=== PATIENT | female | born 1980 | race American Indian/Alaskan Native ===

== ENCOUNTER 2017-10-06 18:56 | Emergency (ER) | payer MEDICAID, OTHER ==
[2017-10-06 18:57] VITALS: BMI 41.1
[2017-10-06 19:05] VITALS: BP 127/82; PULSE 75; RESP 18; TEMP 97.5; O2SAT 96
--- NOTE | 2017-10-06 19:33 | C.PDOC ---
History Of Present Illness 36 year old female with a Hx of asthma and intubation 4 years ago presents to the ER with a complaint of feeling SOB and back pain for the past 5 days. Patient states she was seen on 10/04/17 at [facility] where she had CT of her chest that showed a collapsed right middle lobe and a CT abd/pel that was unremarkable. Patient was advised to be admitted at the time to have a bronchoscopy done, however, patient signed out AMA. [place] [facility] [place], she was found to have mild leukocytosis with predominance of neutrophils. Patient admitted but states they did not treat her SOB and discharged with morning her on levaquin. Denies fever or chest pain. Chief Complaint (Nursing): Shortness Of Breath History Per: Patient History/Exam Limitations: no limitations Onset/Duration Of Symptoms: Days Current Symptoms Are (Timing): Still Present Initiating Event: Other (Not known) Current Respiratory Medications: None Associated Symptoms: denies: Fever, Chest Pain, Productive Cough Past Medical History Reviewed: Historical Data, Nursing Documentation, Vital Signs Vital Signs: Last Vital Signs Temp 97.5 F L 10/06/17 19:02 Pulse 75 10/06/17 19:02 Resp 18 10/06/17 19:02 BP 127/82 10/06/17 19:02 Pulse Ox 96 10/06/17 19:50 - Medical History PMH: Arthritis (R knee), Asthma Surgical History: No Surg Hx - [facility] Procedures DRAINAGE OF PELVIC SUBCU/FASCIA, OPEN APPROACH, DIAGN (05/27/16) EXCISION OF PELVIC SUBCU/FASCIA, OPEN APPROACH (05/27/16) Family History: States: Unknown Family Hx - Social History Hx Tobacco Use: Yes (light smoker) Hx Alcohol Use: Yes (social) Hx Substance Use: Yes (CANNABIS) - Immunization History Hx Tetanus Toxoid Vaccination: Yes Hx Influenza Vaccination: Yes Hx Pneumococcal Vaccination: Yes Review Of Systems Constitutional: Negative for: Fever Eyes: Negative for: Vision Change ENT: Negative for: Throat Pain, Throat Swelling Cardiovascular: Negative for: Chest Pain, Palpitations Respiratory: Positive for: Shortness of Breath. Negative for: Hemoptysis Gastrointestinal: Negative for: Vomiting Musculoskeletal: Positive for: Back Pain Physical Exam - Physical Exam Appears: Non-toxic, No Acute Distress, Other (Speaking in complete sentences) Skin: Normal Color, Warm, Dry Head: Atraumatic, Normacephalic Ear(s): Bilateral: Normal Nose: Normal, No Flaring Oral Mucosa: Moist, No Drooling Neck: Normal, Supple Chest: Symmetrical, No Tenderness Cardiovascular: Rhythm Regular Respiratory: No Accessory Muscle Use, Wheezing (Expiratory) Gastrointestinal/Abdominal: Soft, No Tenderness Neurological/Psych: Oriented x3, Normal Speech, Normal Cognition ED Course And Treatment O2 Sat by Pulse Oximetry: 96 (Room air) Pulse Ox Interpretation: Normal Medical Decision Making Medical Decision Making: While awaiting patient work up and response of treatment, patient decided she wanted to leave, she refused all blood work and breathing treatment. Patient left the building before an AMA form could be produced, she stated she will return to [place] where her prior work up was done. Disposition - Disposition Disposition: ELOPEMENT - ER ONLY Disposition Time: 20:00 Condition: FAIR Forms: [facility] (Tajik) - Clinical Impression Clinical Impression: Asthma - Scribe Statement The provider has reviewed the documentation as recorded by the Scribjulius Rebolledo All medical record entries made by the Jeffibjulius were at my direction and personally dictated by me. I have reviewed the chart and agree that the record accurately reflects my personal performance of the history, physical exam, medical decision making, and the department course for this patient. I have also personally directed, reviewed, and agree with the discharge instructions and disposition.
== END 2017-10-06 19:32 | disposition left against medical advice (07) ==
LOC: C.ER 18:56
DX: J45.909 Unspecified asthma, uncomplicated (principal); F17.210 Nicotine dependence, cigarettes, uncomplicated

== ENCOUNTER 2018-05-09 11:25 | Emergency (ER) | payer MEDICAID, OTHER ==
[2018-05-09 11:30] VITALS: BMI 46.0
--- NOTE | 2018-05-09 11:58 | C.PDOC ---
History Of Present Illness <Sophia Nunes - Last Filed: 05/09/18 12:58> <Claudio,Lissette A - Last Filed: 05/11/18 14:18> 37 y/o female currently 19 weeks presents to ED with c/o vaginal bleeding associated with abdominal cramping. Patient states she was doing a lot of heavy lifting yesterday and developed cramping last night and vaginal bleeding described as clots today. Patient denies vaginal discharge, dysuria, back pain, fever, chills or any other complaints at this time. (Sophia Nunes) History Per: Patient History/Exam Limitations: no limitations Onset/Duration Of Symptoms: Days Current Symptoms Are (Timing): Still Present Quality Of Discomfort: Cramping <Sophia Nunes - Last Filed: 05/09/18 12:58> <Lissette Snyder - Last Filed: 05/11/18 14:18> Time Seen by Provider: 05/09/18 11:39 Chief Complaint (Nursing): Abdominal Pain Past Medical History Reviewed: Historical Data, Nursing Documentation, Vital Signs - Medical History PMH: Arthritis (susan knee), Asthma, Bronchitis, Fractures (left fibula), Sleep Apnea (confirmed by sleep study, mild) Surgical History: No Surg Hx Family History: States: No Known Family Hx - Social History Hx Tobacco Use: Yes (light smoker) Hx Alcohol Use: Yes (Socially) Hx Substance Use: No (Marijuana) - Immunization History Hx Tetanus Toxoid Vaccination: Yes (01/2018) Hx Influenza Vaccination: Yes (2017) Hx Pneumococcal Vaccination: Yes (2017) <Sophia Nunes - Last Filed: 05/09/18 12:58> Vital Signs: Last Vital Signs Temp 98.0 F 05/09/18 14:36 Pulse 62 05/09/18 14:36 Resp 16 05/09/18 14:36 BP 108/61 05/09/18 14:36 Pulse Ox 97 05/09/18 14:36 - [facility] Procedures DRAINAGE OF PELVIC SUBCU/FASCIA, OPEN APPROACH, DIAGN (05/27/16) EXCISION OF PELVIC SUBCU/FASCIA, OPEN APPROACH (05/27/16) Review Of Systems Constitutional: Negative for: Fever, Chills Cardiovascular: Negative for: Chest Pain Gastrointestinal: Negative for: Nausea, Vomiting Genitourinary: Positive for: Vaginal Bleeding, Pelvic Pain. Negative for: Dysuria, Vaginal Discharge <Sophia Nunes - Last Filed: 05/09/18 12:58> Physical Exam - Physical Exam Appears: Non-toxic, No Acute Distress Skin: Warm, Dry, No Rash Head: Atraumatic, Normacephalic Eye(s): bilateral: Normal Inspection Oral Mucosa: Moist Neck: Normal ROM, Supple Cardiovascular: Rhythm Regular Respiratory: Normal Breath Sounds, No Rales, No Rhonchi, No Wheezing Gastrointestinal/Abdominal: Soft, Tenderness (Pelvic area), No Guarding, No Rebound Back: No CVA Tenderness, No Paraspinal Tenderness Neurological/Psych: Oriented x3, Normal Speech, Normal Cognition <Sophia Nunes - Last Filed: 05/09/18 12:58> ED Course And Treatment - Laboratory Results Result Diagrams: 05/09/18 12:35 05/09/18 12:35 O2 Sat by Pulse Oximetry: 99 (RA) Pulse Ox Interpretation: Normal <Sophia Nunes - Last Filed: 05/09/18 12:58> - Laboratory Results Result Diagrams: 05/09/18 12:35 05/09/18 12:35 <Lissette Snyder - Last Filed: 05/11/18 14:18> Disposition Counseled Patient/Family Regarding: Diagnosis - Disposition Disposition Time: 13:00 <Sophia Nunes - Last Filed: 05/09/18 12:58> Counseled Patient/Family Regarding: Studies Performed, Diagnosis, Need For Followup - Disposition Disposition Time: 15:55 - POA Present On Arrival: None <Lissette Snyder - Last Filed: 05/11/18 14:18> - Disposition Referrals: Tyler Armijo MD [Medical Doctor] - Disposition: HOME/ ROUTINE Condition: STABLE Additional Instructions: FOLLOW UP WITH YOUR OPERATIONS INTELLIGENCE WITHIN 1 WEEK RETURN TO ER IF SYMPTOMS WORSEN Instructions: Symptoms Forms: [facility] (Faroese) Print Language: SURINAMESE - Clinical Impression Clinical Impression: Pelvic pain affecting - Scribe Statement The provider has reviewed the documentation as recorded by the Scribe <Sophia Nunes - Last Filed: 05/09/18 12:58> <Lissette Snyder - Last Filed: 05/11/18 14:18> - Scribe Statement Maricsa Toussaint All medical record entries made by the Scribe were at my direction and personally dictated by me. I have reviewed the chart and agree that the record accurately reflects my personal performance of the history, physical exam, medical decision making, and the department course for this patient. I have also personally directed, reviewed, and agree with the discharge instructions and disposition. (DesSophai) Physician Patient Turnover Patient Signed Over To: Lissette Snyder Handoff Comments: FU US, DISPO <Sophia Nunes - Last Filed: 05/09/18 12:58> Addendum <Sophia Nunes - Last Filed: 05/09/18 12:58> <Lissette Snyder - Last Filed: 05/11/18 14:18> Addendum: 05/09/18 On reassessment, patient is resting comfortably, in no pain/distress. US shows live IUP 19wks 2 days HR 152 bpm. Patient instructed to follow up with her ob/ gum cook within 1 week, and understands she should return to ED if symptoms worsen. Accession No. : [id number] Patient Name / ID : EDER MARQUES / [id number] Exam Date : 05/09/2018 13:26:19 ( Approved ) Study Comment : Sex / Age : F / 37Y Creator : Sebastian Callahan MD Dictator : Sebastian Callahan MD Criminal Justice Faculty : Internal Specialist : Sebastian Callahan MD Approver2 : Report Date : 05/09/2018 14:20:11 My Comment : PROCEDURE: OB Pelvic Ultrasound HISTORY: vag bleeding ro demise LMP: 12/24/2017 COMPARISON: No relevant prior imaging. FINDINGS: UTERUS: Placenta: Posterior Presentation cephalic BPD: 4.4 cm compatible with estimated gestational age of 19 weeks, 3 days HC: 16.0 cm compatible with estimated gestational age of 18 weeks, 6 days HC: 14.4 cm compatible with estimated gestation age of 19 weeks, 5 days FL: 2.9 cm compatible with estimated gestation age of 19 weeks, 0 days Heart rate: 152 bpm. age (Ultrasound estimated): 19 weeks, 2 days Melissa-gestational hemorrhage: None. Date of delivery (Ultrasound estimated) : 10/01/2018 CERVIX: Measures 3.5 cm. Long and closed. No cervical abnormality seen. RIGHT OVARY: Not visualized LEFT OVARY: Not visualized FREE FLUID: None. OTHER FINDINGS: None. IMPRESSION: Single live intrauterine gestation with average ultrasound age of 19 weeks, 2 days. heart rate 152 beats per minute. Cervix long and closed. (Lissette Snyder)
[2018-05-09 12:40] LABS: BASO # 0.1 K/uL (0.0-0.2); BASO % 0.8 % (0.0-2.0); EOS # 0.4 K/uL (0.0-0.7); EOS % 5.2 % (0.0-4.0); LYMPH # 2.1 K/uL (1.0-4.3); LYMPH % 25.7 % (20.0-40.0); MEAN CELL VOLUME 87.9 fL (81.0-99.0); MEAN CORPUSCULAR HEMOGLOBIN 29.8 pg (27.0-31.0); MEAN CORPUSCULAR HGB CONC 33.9 g/dL (33.0-37.0); MONO # 0.6 K/uL (0.0-0.8); MONO % 7.2 % (0.0-10.0); NEUT # 5.1 K/uL (1.8-7.0); NEUT % 61.1 % (50.0-75.0); RBC 3.64 Mil/uL (3.80-5.20); RED CELL DISTRIBUTION WIDTH 13.3 % (11.5-14.5); WHITE BLOOD COUNT 8.3 K/uL (4.8-10.8)
[2018-05-09 12:47] LABS: HEMOGLOBIN 10.8 g/dL (11.0-16.0)
[2018-05-09 12:56] LABS: ALB/GLOB RATIO 1.2 (1.0-2.1); ALBUMIN 3.4 g/dL (3.5-5.0); ALT/SGPT 25 U/L (9-52); AST/SGOT 33 U/L (14-36); BLOOD UREA NITROGEN 9 mg/dL (7-17); CALCIUM 9.1 mg/dl (8.6-10.4); GFR AFRICAN-AMERICAN > 60; GFR NON-AFRICAN AMERICAN > 60; SQUAMOUS EPITHIAL 9 /hpf (0-5); URINE BACTERIA RARE (<OCC); URINE BILIRUBIN NEGATIVE (NEGATIVE); URINE BLOOD NEGATIVE (NEGATIVE); URINE CLARITY Hazy (Clear); URINE COLOR Yellow (YELLOW); URINE GLUCOSE (UA) NORMAL (Normal); URINE LEUKOCYTE ESTERASE NEG Leu/uL (Negative); URINE PROTEIN NEGATIVE (NEGATIVE); URINE UROBILINOGEN NORMAL mg/dL (0.2-1.0)
--- NOTE | 2018-05-09 14:22 | US ---
PROCEDURE: OB Pelvic Ultrasound HISTORY: vag bleeding ro demise LMP: 12/24/2017 COMPARISON: No relevant prior imaging. FINDINGS: UTERUS: Placenta: Posterior Presentation cephalic BPD: 4.4 cm compatible with estimated gestational age of 19 weeks, 3 days HC: 16.0 cm compatible with estimated gestational age of 18 weeks, 6 days HC: 14.4 cm compatible with estimated gestation age of 19 weeks, 5 days FL: 2.9 cm compatible with estimated gestation age of 19 weeks, 0 days Heart rate: 152 bpm. age (Ultrasound estimated): 19 weeks, 2 days Melissa-gestational hemorrhage: None. Date of delivery (Ultrasound estimated) : 10/01/2018 CERVIX: Measures 3.5 cm. Long and closed. No cervical abnormality seen. RIGHT OVARY: Not visualized LEFT OVARY: Not visualized FREE FLUID: None. OTHER FINDINGS: None. IMPRESSION: Single live intrauterine gestation with average ultrasound age of 19 weeks, 2 days. heart rate 152 beats per minute. Cervix long and closed.
[2018-05-09 14:37] VITALS: BP 108/61; PULSE 62; RESP 16; TEMP 98; O2SAT 97
== END 2018-05-09 15:11 | disposition home or self-care (01) ==
LOC: C.ER 11:25
DX: O26.92 Pregnancy related conditions, unspecified, second trimester (principal); R10.2 Pelvic and perineal pain; Z3A.19 19 weeks gestation of pregnancy